=== PATIENT | female | born 1935 | race Two or more races ===

== ENCOUNTER 2017-08-31 08:44 | Outpatient (CLI) | payer OTHER ==
[~2017-08-31 08:44] MED LIST: PROZAC10 MG
== END 2017-08-31 15:44 | disposition home or self-care (01) ==
LOC: TOM 08:44
DX: M54.5 Low back pain (principal)

== ENCOUNTER → 2017-10-18 | Outpatient (CLI) | payer OTHER | END | disposition home or self-care (01) | LOC: NUCLEAR 12:52 | DX: M81.0 Age-related osteoporosis without current pathological fracture (principal); M85.9 Disorder of bone density and structure, unspecified ==

== ENCOUNTER 2018-10-17 11:28 | Outpatient (CLI) | payer OTHER | END 2018-10-17 11:31 | disposition home or self-care (01) | LOC: RAD 11:28 | DX: M16.12 Unilateral primary osteoarthritis, left hip (principal); M17.12 Unilateral primary osteoarthritis, left knee ==

== ENCOUNTER 2021-10-25 16:19 | Inpatient (IN) | payer OTHER ==
[~2021-10-25] VITALS: Ht 121.9 cm; Wt 79.4 kg
--- NOTE | 2021-10-25 16:42 | NUR ---
PATIENT IS RECIEVED IN AMBULANCE UNIT SAYING THAT SHE HAS BEEN SHORT OF BREATH AFTER EATING LUNCH. PATIENT SUSPECTS THAT SHE GOT A PEICE OF MEAT LODGED IN HER THROAT AND HAS FOUND IT DIFFICULT TO BREATH EVER SINCE.
== END 2021-11-19 21:12 | disposition expired | DRG 177 ==
LOC: ER 16:19 → SURH 19:57 → ICU 11-12 02:43
PROVIDERS: ADMIT Internal Medicine; ATTEND Internal Medicine
PROC: 5A0945A Assistance with Respiratory Ventilation, 24-96 Consecutive Hours, High Flow/Velocity Cannula (ICD-10-PCS; principal; 2021-10-25)
PROC: 5A09357 Assistance with Respiratory Ventilation, Less than 24 Consecutive Hours, Continuous Positive Airway Pressure (ICD-10-PCS; 2021-11-03)
PROC: 02HV33Z Insertion of Infusion Device into Superior Vena Cava, Percutaneous Approach (ICD-10-PCS; 2021-11-05)
PROC: 5A09557 Assistance with Respiratory Ventilation, Greater than 96 Consecutive Hours, Continuous Positive Airway Pressure (ICD-10-PCS; 2021-11-10)
DX: J69.0 Pneumonitis due to inhalation of food and vomit (principal); J96.01 Acute respiratory failure with hypoxia; J45.901 Unspecified asthma with (acute) exacerbation; J44.1 Chronic obstructive pulmonary disease with (acute) exacerbation; N39.0 Urinary tract infection, site not specified; Z16.12 Extended spectrum beta lactamase (ESBL) resistance; I50.30 Unspecified diastolic (congestive) heart failure; I11.0 Hypertensive heart disease with heart failure; E66.9 Obesity, unspecified; Z68.35 Body mass index [BMI] 35.0-35.9, adult; D64.9 Anemia, unspecified; Z87.891 Personal history of nicotine dependence; B96.1 Klebsiella pneumoniae [K. pneumoniae] as the cause of diseases classified elsewhere; B96.20 Unspecified Escherichia coli [E. coli] as the cause of diseases classified elsewhere; Z66 Do not resuscitate